=== PATIENT | female | born 1995 | race Caucasian/White ===

== ENCOUNTER 2016-03-01 15:44 | Emergency (ER) | payer OTHER, BC ==
[~2016-03-01] VITALS: Ht 165.1 cm; Wt 79.1 kg
[2016-03-01 16:10] VITALS: BP 129/64
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
[2016-03-01 16:46] LABS: NEG OBC UR NEG; POS OBC UR POS
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
[2016-03-01] MEDS ORDERED: NAPR500T8 PO (19:14)
== END 2016-03-01 19:28 | disposition home or self-care (01) ==
LOC: ER 15:44
DX: S16.1XXA Strain of muscle, fascia and tendon at neck level, initial encounter (principal); V89.2XXA Person injured in unspecified motor-vehicle accident, traffic, initial encounter; W22.11XA Striking against or struck by driver side automobile airbag, initial encounter; Y92.413 State road as the place of occurrence of the external cause; Y93.89 Activity, other specified; Y99.8 Other external cause status
CPT/HCPCS: 70450; 72040; 81025; 99284-25